=== PATIENT | female | born 1955 | race Caucasian/White ===

== ENCOUNTER 2019-08-05 07:04 | Emergency (ER) | payer OTHER ==
[~2019-08-05] VITALS: Ht 167.6 cm; Wt 74.8 kg
--- NOTE | 2019-08-05 07:04 | NUR ---
BROUGHT BACK TO BED #7, TRIAGED, REPORT GIVEN TO CAROLYNN
[2019-08-05 07:05] VITALS: BP_SYST 141
--- NOTE | 2019-08-05 07:05 | NUR ---
Pt walked in to ER with c/o rash to bilat groin and thigh area. Reports taking prednisone and azithromyacin x4 days for bronchitis. States it itches but denies any pain. V/S stable, currenlty afebrile. Resting in bed, will continue to monitor.
--- NOTE | 2019-08-05 07:10 | NUR ---
ER Dr. Guzman at bedside examining patient.
--- NOTE | 2019-08-05 07:55 | NUR ---
Patient given written and verbal discharge instructions and verbalizes understanding. ER MD discussed with patient the results and treatment provided. Patient in stable condition. ID arm band removed. Rx of Zyrtec given. Patient educated on pain management and to follow up with PMD. Pain Scale 0. Opportunity for questions provided and answered. Medication side effect fact sheet provided.
[2019-08-05 07:58] VITALS: BP_SYST 141
== END 2019-08-05 07:55 | disposition home or self-care (01) ==
LOC: SED 07:04
DX: L27.0 Generalized skin eruption due to drugs and medicaments taken internally (principal)
CPT/HCPCS: 99282

== ENCOUNTER 2023-02-14 06:03 | Day surgery (SDC) | payer OTHER, MEDICARE ==
[~2023-02-14] VITALS: Ht 167.6 cm; Wt 73.9 kg
[2023-02-14] MEDS ORDERED: ACETAMINOPHEN I.V. 1000 MG 100 ML IV ONE (07:20)
[2023-02-14] MEDS ORDERED: LABETALOL 100 MG/ 20ML VIAL IVP PRN (08:45)
[2023-02-14] MEDS ORDERED: METOCLOPRAMIDE HCL 10 MG/2 ML VIAL IVP PRN (08:45)
[2023-02-14] MEDS ORDERED: MEPERIDINE HCL/PF 25 MG/ML DISP.SYRIN IVP PRN (08:45)
[2023-02-14] MEDS ORDERED: hydrALAZINE HCL 20 MG/ML VIAL IVP PRN (08:45)
[2023-02-14] MEDS ORDERED: HYDROmorphone 1 MG/ML INJ. CARTRIDGE IVP PRN ×2 (08:45)
[2023-02-14] MEDS ORDERED: MIDAZOLAM HCL 2 MG/2 ML VIAL (VERSED) IVP PRN (08:45)
[2023-02-14] MEDS ORDERED: LR 1,000 ML IV SCH (08:45)
[2023-02-14 08:47] VITALS: O2SAT 99
[2023-02-14] MEDS ORDERED: PROPOFOL 200MG/ 20ML VIAL (DIPRIVAN) IV ONE (10:48)
[2023-02-14] MEDS ORDERED: GLYCOPYRROLATE 0.2 MG/ML VIAL ONE (10:48)
[2023-02-14] MEDS ORDERED: OXYMETAZOLINE HCL 0.05% NASAL SPRAY NS ONE (10:48)
[2023-02-14] MEDS ORDERED: fentaNYL CITRATE/PF 100 MCG/2 ML AMP ONE (10:48)
[2023-02-14] MEDS ORDERED: NS 1000 ML IV.SOLN IV ONE (10:48)
[2023-02-14] MEDS ORDERED: SUGAMMADEX SODIUM 200 MG/2 ML VIAL IV ONE (10:48)
[2023-02-14] MEDS ORDERED: MUPIROCIN 2% TOPICAL OINTMENT 22 GM ONE (10:48)
[2023-02-14] MEDS ORDERED: LIDOCAINE 2%, 20 ML MDV ONE (10:48)
[2023-02-14] MEDS ORDERED: DESFLURANE 15 MIN GAS INH ONE (10:48)
[2023-02-14] MEDS ORDERED: ROCURONIUM BROMIDE 10 MG/ML (ZEMURON) ONE (10:48)
[2023-02-14] MEDS ORDERED: LIDOCAINE/EPI 1% 1:100000 20 ML VIAL ONE (10:48)
[2023-02-14] MEDS ORDERED: LR 1,000 ML IV.SOLN IV ONE (10:48)
[2023-02-14] MEDS ORDERED: DEXAMETHASONE SOD PHOSPHATE 4 MG/ML VIAL ONE (10:48)
[2023-02-14] MEDS ORDERED: NS IRRIG SOLN 1000 ML IR ONE (10:48)
[2023-02-14] MEDS ORDERED: ONDANSETRON HCL 4 MG/2 ML VIAL ONE (10:48)
[2023-02-14] MEDS ORDERED: MIDAZOLAM HCL 5 MG/ML VIAL (VERSED) IV ONE (10:48)
[2023-02-14] MEDS ORDERED: LEVOFLOXACIN 500 mg/D5W 100 mL IVPB IV ONE (10:48)
[2023-02-14 12:50] VITALS: BP_SYST 155; PULSE 57; RESP 20
== END 2023-02-14 12:45 | disposition home or self-care (01) ==
LOC: SDS 06:03 → SMU 06:04 → SDS 12:45
PROVIDERS: ATTEND Otolaryngology
DX: D38.5 Neoplasm of uncertain behavior of other respiratory organs (principal); J34.2 Deviated nasal septum; J32.9 Chronic sinusitis, unspecified; I10 Essential (primary) hypertension; R22.0 Localized swelling, mass and lump, head; N95.1 Menopausal and female climacteric states; Z88.1 Allergy status to other antibiotic agents; Z79.899 Other long term (current) drug therapy
CPT/HCPCS: 31296; 87070; 87075; 87186; 87101; 88304; 88305; 88311; 31256; 31257; 30140; 30520; J3490 ×2; J1100; J1956; J2001; J2250; J2405; J2704; J3010; J7120; J7030; A4649; C1726; J0131